=== PATIENT | male | born 1945 | race Caucasian/White ===

== ENCOUNTER → 2019-12-11 09:43 | Outpatient (BNVA) | payer MEDICARE, BC, SELFPAY | PROVIDERS: Family Provider Nurse Practitioner Family; PCP Nurse Practitioner Family; Visit Provider Nurse Practitioner Family | DX: E11.9 Type 2 diabetes mellitus without complications (principal) | CPT/HCPCS: 80053; 83036 ==

== ENCOUNTER → 2020-05-01 08:28 | Outpatient (BNVA) | payer MEDICARE, BC, SELFPAY | PROVIDERS: Family Provider Nurse Practitioner Family; PCP Nurse Practitioner Family; Visit Provider Nurse Practitioner Family | DX: E11.9 Type 2 diabetes mellitus without complications (principal); N18.3 Chronic kidney disease, stage 3 (moderate); E78.2 Mixed hyperlipidemia | CPT/HCPCS: 80053; 80061; 83036; 83721 ==

== ENCOUNTER → 2020-05-19 10:19 | Outpatient (BNVA) | payer MEDICARE, BC, SELFPAY | PROVIDERS: Family Provider Nurse Practitioner Family; PCP Nurse Practitioner Family; Visit Provider Nurse Practitioner Family | DX: N18.3 Chronic kidney disease, stage 3 (moderate) (principal); E03.9 Hypothyroidism, unspecified; E11.9 Type 2 diabetes mellitus without complications; E78.2 Mixed hyperlipidemia; I10 Essential (primary) hypertension; K21.9 Gastro-esophageal reflux disease without esophagitis | CPT/HCPCS: 80053; 84443 ==

== ENCOUNTER → 2020-08-25 09:56 | Outpatient (BNVA) | payer MEDICARE, BC, SELFPAY | PROVIDERS: Family Provider Nurse Practitioner Family; PCP Nurse Practitioner Family; Visit Provider Nurse Practitioner | DX: E11.9 Type 2 diabetes mellitus without complications (principal); E03.9 Hypothyroidism, unspecified; I10 Essential (primary) hypertension; E78.2 Mixed hyperlipidemia; Z79.899 Other long term (current) drug therapy | CPT/HCPCS: 80053; 80061; 81000; 82043; 82607; 83036; 83721; 84443; 85025 ==

== ENCOUNTER → 2020-11-03 09:20 | Outpatient (BNVA) | payer MEDICARE, BC, SELFPAY | PROVIDERS: Family Provider Nurse Practitioner Family; PCP Nurse Practitioner Family; Visit Provider Nurse Practitioner Family | DX: E11.65 Type 2 diabetes mellitus with hyperglycemia (principal); E78.2 Mixed hyperlipidemia; K21.9 Gastro-esophageal reflux disease without esophagitis; I25.5 Ischemic cardiomyopathy; I10 Essential (primary) hypertension; E03.9 Hypothyroidism, unspecified; N18.31 Chronic kidney disease, stage 3a | CPT/HCPCS: 80053; 80061; 83036; 83721; 84443; 85025 ==

== ENCOUNTER → 2021-02-03 15:09 | Outpatient (BNVA) | payer MEDICARE, BC, SELFPAY | PROVIDERS: Family Provider Nurse Practitioner Family; PCP Nurse Practitioner Family; Visit Provider Nurse Practitioner Family | DX: E03.9 Hypothyroidism, unspecified (principal); E11.65 Type 2 diabetes mellitus with hyperglycemia; E78.2 Mixed hyperlipidemia; I10 Essential (primary) hypertension; I25.5 Ischemic cardiomyopathy; K21.9 Gastro-esophageal reflux disease without esophagitis; N18.31 Chronic kidney disease, stage 3a | CPT/HCPCS: 80053; 80061; 83036; 84443; 85025 ==

== ENCOUNTER 2021-04-06 13:34 | Outpatient (CLI) | payer MEDICARE, BC, SELFPAY ==
--- NOTE | 2021-04-06 13:30 | USCV_ITS ---
Toi Pike Age: 76 Gender: M : 1945 Exam Date: 04/06/2021 14:01 Ordering Phys: Ronal Daley MD ([email or web address]) Technologist: Pham Negrete [place] [facility] [place]: OTHER, CHEST PAIN BP: / HR: 60 Rhythm: Sinus Technical Quality: Fair MEASUREMENTS (Male / Female) Normal Values 2D ECHO LV Diastolic Diameter PLAX 5.8 cm 4.2 - 5.9 / 3.9 - 5.3 cm LV Systolic Diameter PLAX 5.1 cm IVS Diastolic Thickness 1.0 cm 0.6 - 1.0 / 0.6 - 0.9 cm IVS Systolic Thickness 1.1 cm LVPW Diastolic Thickness 0.7 cm 0.6 - 1.0 / 0.6 - 0.9 cm LVPW Systolic Thickness 1.6 cm LVOT Diameter 2.2 cm LV Ejection Fraction 2D Teich 25.5 % LV Ejection Fraction MOD 2C 43.3 % LV Ejection Fraction 2C AL 44.4 % LA Diameter 3.4 cm LA Width 2.5 cm LA Height 5.1 cm RA Width 2.6 cm RA Height 4.6 cm Aorta at Sinotubular Diameter 3.7 cm M-MODE LV Diastolic Diameter MM 7.7 cm 4.2 - 5.9 / 3.9 - 5.3 cm LV Systolic Diameter MM 6.5 cm LV Ejection Fraction MM Teich 30.7 % IVS Diastolic Thickness MM 0.5 cm 0.6 - 1.0 / 0.6 - 0.9 cm IVS Systolic Thickness MM 0.5 cm LVPW Diastolic Thickness MM 0.8 cm 0.6 - 1.0 / 0.6 - 0.9 cm LVPW Systolic Thickness MM 1.2 cm Aortic Annulus Diameter 3.8 cm LA Ao Ratio MM 0.9 MV E Point Septal Separation 1.0 cm DOPPLER AV Peak Velocity 111.0 cm/s LVOT Peak Velocity 90.0 cm/s AV Area Cont Eq vti 3.5 cm squared AV Area Cont Eq pk 3.1 cm squared MV Peak Velocity 101.0 cm/s MV Area PHT 3.1 cm squared Mitral E to A Ratio 0.5 MV E' Velocity 26.0 cm/s Mitral E to MV E' Ratio 6.9 Mitral E to LV E' Lateral Ratio 5.8 Mitral E to LV E' Septal Ratio 8.7 TR Peak Velocity 64.0 cm/s TR Peak Gradient 1.6 mmHg Right Atrial Pressure 3.0 mmHg Pulmonary Artery Systolic Pressu 4.6 mmHg FINDINGS Left Ventricle Diffuse hypokinesia of the inferior wall, septum and the anteroseptal segments. LV ejection fraction of 43%.Grade I/IV diastolic dysfunction (abnormal relaxation filling pattern), normal to mildly elevated filling pressures. Right Ventricle Normal right ventricular size and systolic function. Right Atrium The right atrium is normal in size. Left Atrium The left atrium is normal in size. Mitral Valve Trace mitral valve regurgitation. Aortic Valve No gross abnormalities noted Tricuspid Valve No gross abnormalities noted Pulmonic Valve Pulmonic valve not well visualized. Pericardium Normal pericardium without effusion. Aorta Normal ascending aorta dimension. CONCLUSIONS Diffuse hypokinesia of the inferior wall, septum and the anteroseptal segments. LV ejection fraction of 43%.Grade I/IV diastolic dysfunction (abnormal relaxation filling pattern), normal to mildly elevated filling pressures. Trace mitral valve regurgitation. There is no pericardial effusion. There are no intracardiac masses. Compared to the study from 07/09/2015, there may not be a significant change Dr Ronal Daley MD FAC (Electronically Signed) Final Date: 06 Apr 2021 15:06 S
== END 2021-04-06 13:35 | disposition home or self-care (01) ==
LOC: RAD 13:40
PROVIDERS: PCP Nurse Practitioner Family; Visit Provider Internal Medicine Cardiovascular Disease
DX: R07.89 Other chest pain (principal); I25.5 Ischemic cardiomyopathy
CPT/HCPCS: 93306

== ENCOUNTER → 2021-05-05 10:52 | Outpatient (BNVA) | payer MEDICARE, BC, SELFPAY | PROVIDERS: PCP Nurse Practitioner Family; Visit Provider Nurse Practitioner Family | DX: I12.9 Hypertensive chronic kidney disease with stage 1 through stage 4 chronic kidney disease, or unspecified chronic kidney disease (principal); E03.9 Hypothyroidism, unspecified; E78.2 Mixed hyperlipidemia; E11.65 Type 2 diabetes mellitus with hyperglycemia; K21.9 Gastro-esophageal reflux disease without esophagitis; I25.5 Ischemic cardiomyopathy; N18.31 Chronic kidney disease, stage 3a; E11.22 Type 2 diabetes mellitus with diabetic chronic kidney disease | CPT/HCPCS: 80053; 80061; 83036; 83721; 84443; 85025 ==

== ENCOUNTER → 2021-07-28 10:00 | Outpatient (BNVA) | payer MEDICARE, BC, SELFPAY | PROVIDERS: PCP Nurse Practitioner Family; Visit Provider Nurse Practitioner Family | DX: E03.9 Hypothyroidism, unspecified (principal); E78.2 Mixed hyperlipidemia; E11.65 Type 2 diabetes mellitus with hyperglycemia; K21.9 Gastro-esophageal reflux disease without esophagitis; I25.5 Ischemic cardiomyopathy; I12.9 Hypertensive chronic kidney disease with stage 1 through stage 4 chronic kidney disease, or unspecified chronic kidney disease; N18.31 Chronic kidney disease, stage 3a | CPT/HCPCS: 80053; 80061; 83036; 84443; 85025 ==

== ENCOUNTER → 2021-08-20 10:57 | Outpatient (BNVA) | payer MEDICARE, BC, SELFPAY | PROVIDERS: PCP Nurse Practitioner Family; Visit Provider Nurse Practitioner Family | DX: M25.511 Pain in right shoulder (principal) | CPT/HCPCS: 73030 ==

== ENCOUNTER 2021-09-14 10:37 | Outpatient (CLI) | payer MEDICARE, BC, SELFPAY ==
--- NOTE | 2021-09-14 11:00 | MR_ITS ---
WS: [id number] MRI RIGHT SHOULDER NONCONTRAST TECHNIQUE: Sagittal T2, coronal T1, T2 and proton density imaging. Axial gradient PDE imaging. CLINICAL INFORMATION: M25.511 - Pain in right shoulder COMPARISON: MRI 2 017 FINDINGS: Moderate degenerative arthritis AC joint with mild downsloping acromion. Slight subacromial spurring. Slight impingement on the distal supraspinatus with tendinopathy. Small intrasubstance tear distally with undersurface tear at the supraspinatus insertion. Tendinopathy appears progressed since 2017. Normal infraspinatus. Normal teres minor. Normal subscapularis tendon distally. Normal biceps tendon in the bicipital groove. Small subcoracoid effusion. Mild degenerative fraying of the glenoid labrum. Inferior para labral cysts previously described have nearly resolved today. Moderate degenerative na rrowing at the glenohumeral joint. MR/MR shoulder RT wo con* [id number] IMPRESSION: 1. Moderate degenerative degenerative arthritis AC joint with mild edema and m ild downsloping acromion. Impingement on the distal supraspinatus. 2. Small intrasubstance tear in the distal supraspinatus with progressed adeno yessenia. Tiny undersurface insertional tear. 3. Rotator cuff is otherwise normal in appearance. No full-thickness rotator c uff tears. 4. Normal biceps tendon in the bicipital groove. Normal intra-articular biceps tendon. 5. Degenerative fraying of the glenoid labrum. 6. Small subcoracoid effusion.
== END 2021-09-14 10:38 | disposition home or self-care (01) ==
LOC: RADSHAW 10:43
PROVIDERS: PCP Nurse Practitioner Family; Visit Provider Nurse Practitioner Family
DX: M25.411 Effusion, right shoulder (principal); M19.011 Primary osteoarthritis, right shoulder; M75.101 Unspecified rotator cuff tear or rupture of right shoulder, not specified as traumatic; R60.0 Localized edema; G89.29 Other chronic pain
CPT/HCPCS: 73221

== ENCOUNTER → 2021-09-16 12:10 | Outpatient (BNVA) | payer MEDICARE, BC, SELFPAY | PROVIDERS: PCP Nurse Practitioner Family; Visit Provider Internal Medicine Cardiovascular Disease | DX: I25.5 Ischemic cardiomyopathy (principal); I50.33 Acute on chronic diastolic (congestive) heart failure; R07.89 Other chest pain; R06.02 Shortness of breath; I13.0 Hypertensive heart and chronic kidney disease with heart failure and stage 1 through stage 4 chronic kidney disease, or unspecified chronic kidney disease; I50.20 Unspecified systolic (congestive) heart failure; N18.31 Chronic kidney disease, stage 3a; I25.3 Aneurysm of heart; E78.2 Mixed hyperlipidemia | CPT/HCPCS: 80048; 83880 ==

== ENCOUNTER → 2021-10-26 11:03 | Outpatient (BNVA) | payer MEDICARE, BC, SELFPAY | PROVIDERS: PCP Nurse Practitioner Family; Visit Provider Nurse Practitioner Family | DX: E11.65 Type 2 diabetes mellitus with hyperglycemia (principal); E78.2 Mixed hyperlipidemia; E03.9 Hypothyroidism, unspecified; K21.9 Gastro-esophageal reflux disease without esophagitis; I25.5 Ischemic cardiomyopathy; I12.9 Hypertensive chronic kidney disease with stage 1 through stage 4 chronic kidney disease, or unspecified chronic kidney disease; E11.22 Type 2 diabetes mellitus with diabetic chronic kidney disease; N18.31 Chronic kidney disease, stage 3a | CPT/HCPCS: 80053; 80061; 83036; 83721; 84443; 85025 ==

== ENCOUNTER → 2022-01-29 11:42 | Outpatient (BNVA) | payer MEDICARE, BC, SELFPAY | PROVIDERS: PCP Nurse Practitioner Family; Visit Provider Nurse Practitioner Family | DX: E11.65 Type 2 diabetes mellitus with hyperglycemia (principal); E03.9 Hypothyroidism, unspecified | CPT/HCPCS: 80053; 80061; 83036; 83721; 84443; 85025 ==

== ENCOUNTER → 2022-04-22 11:16 | Outpatient (BNVA) | payer MEDICARE, SELFPAY | PROVIDERS: PCP Nurse Practitioner Family; Visit Provider Nurse Practitioner Family | DX: E11.65 Type 2 diabetes mellitus with hyperglycemia (principal); I10 Essential (primary) hypertension; E78.2 Mixed hyperlipidemia; E03.9 Hypothyroidism, unspecified; N18.31 Chronic kidney disease, stage 3a; K21.9 Gastro-esophageal reflux disease without esophagitis; I25.5 Ischemic cardiomyopathy | CPT/HCPCS: 80053; 80061; 83036; 83721; 84443; 85025 ==

== ENCOUNTER → 2022-05-13 10:42 | Outpatient (BNVA) | payer MEDICARE, SELFPAY | PROVIDERS: PCP Nurse Practitioner Family; Visit Provider Internal Medicine Cardiovascular Disease | DX: I25.5 Ischemic cardiomyopathy (principal); I12.9 Hypertensive chronic kidney disease with stage 1 through stage 4 chronic kidney disease, or unspecified chronic kidney disease; E11.22 Type 2 diabetes mellitus with diabetic chronic kidney disease; N18.31 Chronic kidney disease, stage 3a; Z79.84 Long term (current) use of oral hypoglycemic drugs; E11.65 Type 2 diabetes mellitus with hyperglycemia; I25.3 Aneurysm of heart; E78.2 Mixed hyperlipidemia | CPT/HCPCS: 99214 ==

== ENCOUNTER → 2022-07-23 11:07 | Outpatient (BNVA) | payer MEDICARE, SELFPAY | PROVIDERS: PCP Nurse Practitioner Family; Visit Provider Nurse Practitioner Family | DX: E11.65 Type 2 diabetes mellitus with hyperglycemia (principal); I10 Essential (primary) hypertension | CPT/HCPCS: 80053; 80061; 83036; 84443; 85025 ==

== ENCOUNTER → 2022-10-15 11:15 | Outpatient (BNVA) | payer MEDICARE, SELFPAY | PROVIDERS: PCP Nurse Practitioner Family; Visit Provider Nurse Practitioner Family | DX: E11.65 Type 2 diabetes mellitus with hyperglycemia (principal); E03.9 Hypothyroidism, unspecified; E78.2 Mixed hyperlipidemia; K21.9 Gastro-esophageal reflux disease without esophagitis | CPT/HCPCS: 80053; 80061; 83036; 84443; 85025 ==

== ENCOUNTER → 2023-01-03 10:37 | Outpatient (BNVA) | payer MEDICARE, SELFPAY | PROVIDERS: PCP Nurse Practitioner Family; Visit Provider Nurse Practitioner Family | DX: E11.65 Type 2 diabetes mellitus with hyperglycemia (principal) | CPT/HCPCS: 80053; 80061; 83036; 83721; 84443; 85025 ==

== ENCOUNTER → 2023-02-15 13:53 | Outpatient (BNVA) | payer MEDICARE, SELFPAY | PROVIDERS: PCP Nurse Practitioner Family; Visit Provider Nurse Practitioner Family | DX: I25.5 Ischemic cardiomyopathy (principal); I12.9 Hypertensive chronic kidney disease with stage 1 through stage 4 chronic kidney disease, or unspecified chronic kidney disease; E11.22 Type 2 diabetes mellitus with diabetic chronic kidney disease; E11.65 Type 2 diabetes mellitus with hyperglycemia; N18.30 Chronic kidney disease, stage 3 unspecified; Z79.84 Long term (current) use of oral hypoglycemic drugs | CPT/HCPCS: 99214 ==

== ENCOUNTER → 2023-03-28 10:35 | Outpatient (BNVA) | payer MEDICARE, SELFPAY | PROVIDERS: PCP Nurse Practitioner Family; Visit Provider Nurse Practitioner Family | DX: E11.65 Type 2 diabetes mellitus with hyperglycemia (principal) | CPT/HCPCS: 80053; 80061; 83036; 84443; 85025 ==

== ENCOUNTER 2023-06-20 15:59 | Emergency (ER) | payer MEDICARE, SELFPAY ==
[2023-06-20 16:44] VITALS: BP 164/92; PULSE 78; RESP 14; TEMP 36.3; O2SAT 94; BMI 31.4
--- NOTE | 2023-06-20 17:38 | USR_ITS ---
PROCEDURE INFORMATION: Exam: US Duplex Right Lower Extremity Arteries Or Arterial Bypass Grafts Exam date and time: 06/20/2023 6:03 PM Age: 78 years old Clinical indication: Other: Chigger bites to anterior aspect of right foot x 2 days. Now with loss of sensation and toes blue. ; Additional info: Discoloration of foot, RT distal foot and toes dusky, cold. New onset TECHNIQUE: Imaging protocol: Right Real-time duplex scan of the arteries or arterial bypass grafts of the right lower extremity with 2-D mata scale, color Doppler flow and spectral waveform analysis. Images documented and saved. COMPARISON: No relevant prior studies available. FINDINGS: Right common femoral artery: No occlusion or significant stenosis. Normal waveform. No pseudoaneurysm in the inguinal region. Right superficial femoral artery: No occlusion or significant stenosis. Normal waveform. Right popliteal artery: No occlusion or significant stenosis. Normal waveform. Right calf/foot arteries: No occlusion or significant stenosis in the visualized arteries. Normal waveforms. Dorsalis pedis artery is patent. Soft tissues: No hematoma or collection. RACHEL of 1.27 on the right and 1.20 on the left. US/[place] [id number] IMPRESSION: 1. No stenosis or occlusion. 2. Normal RACHEL.
--- NOTE | 2023-06-20 17:41 | W.ED.EXTPRO ---
HPI - Extremity Problem General: Chief complaint: Extremity Injury, Lower Stated complaint: Right Foot injury, Swelling and turning blue Time Seen by Provider: 06/20/23 17:12 Source: patient Mode of arrival: ambulatory Limitations: no limitations History of Present Illness: Patient presents to the emergency department today after being requested to have follow-up from his primary care doctor. Patient was originally in the primary care office where there was concerns regarding discoloration and pain to the right foot. Patient states that for several days he has had discomfort to the dorsum of his right foot. He states he had what looked like insect bites or possibly chiggers on the top of his foot. He states the last 2 nights he has been woken from sleep with stinging pain in this area. Patient denies stinging pain of the leg. He is also had some swelling and discoloration to the feet. Patient does deal with diabetic neuropathy. He denies any fevers. No chest pain, no shortness of breath, no recent cough. Patient is on clopidogrel daily. Review of Systems General: Reports: 10 or more systems reviewed and unremarkable except in HPI and below PFSH ED PFSH: Medical History Benign essential hypertension Chronic kidney disease, stage 3 Diabetes mellitus with hyperglycemia Enrolled in chronic care management GERD (gastroesophageal reflux disease) History of benign laryngeal tumor History of hepatitis B Hypothyroidism Ischemic cardiomyopathy Patient consistently refused to have any prophylactic ICD. He seems to understand implications. Left ventricular aneurysm Mixed hyperlipidemia Orthopnea Vertigo Surgical History History of angioplasty 2002 History of inguinal hernia repair Right 2013 Hx of arthroscopy of right knee Family History Mother CAD (coronary artery disease) Stroke Father CAD (coronary artery disease) Stroke Brother Cancer Grandmother Diabetes Other Hyperlipidemia Hypertension Denies family history of Clotting disorder Dementia Chronic kidney disease (CKD) Suicide Anesthesia complication Bleeding disorder Lung disease Social History Smoking and tobacco status: never smoked Second hand smoke exposure: No Smoking risk assessment/counseling performed?: No Alcohol intake: never Desire information about alcohol rehabilitation?: No Counseling given: No Substance/Drug Use: never Desire information about substance/drug rehabilitation?: No Counseling given: No Adopted: No Caregiver/support person: No Lives independently: Yes Household members: none Housing: House Marital status: Single Current occupational status: retired Do you think of yourself as: Straight/Heterosexual Current gender identity: Male Physical Exam Const: COMMON NORMALS: no acute distress, patient oriented x3 and alert HENMT: COMMON NORMALS: normocephalic, atraumatic and hearing grossly normal bilaterally HEAD & SCALP: normocephalic and atraumatic Eye: COMMON NORMALS: Equal, round and reactive pupils present, EOMs intact bilaterally and conjunctivae normal CONJUNCTIVA: Yes conjunctivae normal PUPIL: Yes Equal, round and reactive pupils present Neck/C-Spine: COMMON NORMALS: full ROM and no JVD Lymph: LYMPHATIC: no lymphadenopathy noted Resp: COMMON NORMALS: normal respiratory effort, No retractions and No use of accessory muscles Cardio: COMMON NORMALS: no JVD and regular rate RATE: regular rate Extremity: NARRATIVE EXTREMITY EXAM: Patient is able to fully flex and extend the toes on the right foot as well as the right ankle. He is independently ambulatory and weightbearing. Neuro: COMMON NORMALS: patient oriented x3 SENSORIUM/ORIENTATION: Yes alert Psych: COMMON NORMALS: mental status grossly normal, Normal thought process present, cooperative and normal affect THOUGHT PROCESS: Normal thought process present Skin: NARRATIVE SKIN EXAM: Patient has a cluster of small, red, pinpoint spots to the mid dorsum of the right foot. No other signs of rash or lesions up the foot or lower extremity. Patient does have some mild edema present to the foot as well as some darkening/duskiness of the distal forefoot and toes. Toenails are all thickened, brittle, and yellow. Course Vital Signs: Vital signs: Vital Signs Temperature 97.4 F L 06/20/23 16:44 Pulse Rate 78 06/20/23 16:44 Respiratory Rate 14 06/20/23 16:44 Blood Pressure 164/92 06/20/23 16:44 Pulse Oximetry 94 06/20/23 16:44 Oxygen Delivery Me thod Room Air 06/20/23 16:44 MDM - Extremity (Nontraumatic) Medical Decision Making Patient physical examination was initially concerning for shingles rash however, he has no other areas of rash which have developed in no other areas described as burning or tingling sensation noted. I agree patient has edema of the right foot and some darkening of the skin to the distal forefoot and toes. However, skin is still blanchable. We did an arterial ultrasound of the right lower extremity which showed no signs of any claudication or decreased blood flow into the lower extremity and foot. Patient's lab work is also unremarkable at this time. We will treat for potential cellulitis given the swelling is on the same foot as these bites . However, patient needs to be seen and evaluated by his primary care doctor within the next 24 to 48 hours for continued monitoring and evaluation for swelling of his right foot. Patient may be having vascular spasming, nighttime pain may be due to a restless leg syndrome or, could be due to worsening diabetic neuropathy. Patient verbalized understanding and agreement to treatment plan. Differential Diagnosis Likely herpes zoster, gout, cellulitis, superficial thrombophlebitis and lower extremity edema Lab Data 06/20/23 18:45 06/20/23 18:45 Radiology Impressions Duplex Scan Lower Extremity Artery 06/20/23 17:38 IMPRESSION: 1. No stenosis or occlusion. 2. Normal RACHEL. Laboratory Results WBC 9.7 10^3/uL (4.0-10.0) 06/20/23 18:45 RBC 5.09 10^6/uL (4.1-5.3) 06/20/23 18:45 Hgb 15.8 g/dL (11.7-16.6) 06/20/23 18:45 Hct 47.9 % (42.0-52.0) 06/20/23 18:45 MCV 94.1 fl (80-94) H 06/20/23 18:45 MCH 31.0 pg (28.0-34.0) 06/20/23 18:45 MCHC 33.0 g/dL (30.0-36.0) 06/20/23 18:45 RDW 14.0 % (12.1-15.1) 06/20/23 18:45 Plt Count 149 10^3/cmm (130-400) 06/20/23 18:45 MPV 10.9 fL (7.4-10.4) H 06/20/23 18:45 Neut % (Auto) 45.2 % 06/20/23 18:45 Lymph % (Auto) 27.8 % 06/20/23 18:45 [place] % (Auto) 9.1 % 06/20/23 18:45 Eos % (Auto) 16.1 % 06/20/23 18:45 Baso % (Auto) 1.4 % 06/20/23 18:45 Neut # (Auto) 4.39 10^3/uL (1.8-7.7) 06/20/23 18:45 Lymph # (Auto) 2.7 10^3/uL (0.8-4.8) 06/20/23 18:45 [place] # (Auto) 0.9 10^3/uL (0.2-0.9) 06/20/23 18:45 Eos # (Auto) 1.6 10^3/uL (0.0-0.8) H 06/20/23 18:45 Baso # (Auto) 0.1 10^3/uL (0.0-0.1) 06/20/23 18:45 Nucleated RBC % (auto) 0 % 06/20/23 18:45 Nucleated RBCs # 0.0 /100WBC 06/20/23 18:45 ESR < 1 mm/hr (0-10) 06/20/23 18:45 PT 13.30 SECONDS (12.1-14.9) 06/20/23 18:45 INR 0.98 (0.8-1.2) 06/20/23 18:45 APTT 26.2 SECONDS (23.9-36.7) 06/20/23 18:45 Sodium 136 mmol/L (136-145) 06/20/23 18:45 Potassium 3.9 mmol/L (3.5-5.1) 06/20/23 18:45 Chloride 98 mmol/L (98-107) 06/20/23 18:45 Carbon Dioxide 26 mmol/L (22-29) 06/20/23 18:45 Anion Gap 15.9 (5-19) 06/20/23 18:45 BUN 20 mg/dL (8-23) 06/20/23 18:45 Creatinine 1.0 mg/dL (0.7-1.2) 06/20/23 18:45 GFR Calculation Not Reportable 06/20/23 18:45 Glucose 110 mg/dL (65-115) 06/20/23 18:45 Calculated Osmolality 285 mOsm/kg (285-295) 06/20/23 18:45 Calcium 9.4 mg/dL (8.5-10.5) 06/20/23 18:45 Total Bilirubin 0.6 mg/dL (0.15-1.2) 06/20/23 18:45 AST 38 U/L (0-40) 06/20/23 18:45 ALT 42 U/L (0-41) H 06/20/23 18:45 Alkaline Phosphatase 44 U/L (40-130) 06/20/23 18:45 C-Reactive Protein 3.0 mg/L (0.0-4.9) 06/20/23 18:45 Total Protein 6.8 g/dL (6.6-8.7) 06/20/23 18:45 Albumin 4.5 g/dL (3.5-5.2) 06/20/23 18:45 Globulin 2.3 g/dL (1.3-4.6) 06/20/23 18:45 Urine Color Yellow (Yellow) 06/20/23 18:57 Urine Appearance Clear (CLEAR) 06/20/23 18:57 Urine pH 5 (5-7) 06/20/23 18:57 Ur Specific [place] 1.025 (1.005-1.030) 06/20/23 18:57 Urine Protein Neg (Negative) 06/20/23 18:57 Urine Glucose (UA) Norm (Normal) 06/20/23 18:57 Urine Ketones Negative (Negative) 06/20/23 18:57 Urine Blood Neg (Negative) 06/20/23 18:57 Urine Nitrate Negative (Negative) 06/20/23 18:57 Urine Bilirubin Neg (Negative) 06/20/23 18:57 Urine Urobilinogen Norm mg/dL (Negative) 06/20/23 18:57 Ur Leukocyte Esterase Negative (Negative) 06/20/23 18:57 Discharge Plan Discharge Patient Disposition: Home Clinical Impression: Cellulitis in diabetic foot Condition: Stable Prescriptions: New cephalexin 500 mg capsule 500 mg PO Q6H 7 Days Qty: 28 0RF No Action cinnamon bark [Cinnamon] 500 mg capsule 1,000 mg PO DAILY aspirin [Ecotrin] 325 mg tablet,delayed release (DR/EC) 325 mg PO DAILY multivitamin PO omega 3 1 tab PO DAILY Rx Instructions: 1000 unit capsule 2 oral daily zinc 50 mg tablet 50 mg PO DAILY niacin 500 mg tablet 1,500 mg PO DAILY red yeast rice 600 mg tablet 600 mg PO DAILY Rx Instructions: give with meal/snack nitroglycerin [Nitrostat] 0.4 mg tablet, sublingual 0.4 mg SUBLINGUAL Q5M PRN (Reason: chest pain) Qty: 30 2RF Rx Instructions: as directed levothyroxine 125 mcg tablet 125 mcg PO DAILY Qty: 90 3RF Rx Instructions: dose increase glipizide 10 mg tablet extended release 24hr 10 mg PO DAILY Qty: 90 3RF fenofibrate 160 mg tablet 160 mg PO DAILY 90 Days Qty: 90 3RF famotidine 20 mg tablet 20 mg PO BID 90 Days Qty: 180 3RF atorvastatin 10 mg tablet 10 mg PO .hs 90 Days Qty: 90 3RF (DME) Accu-Chek Guide test strips Strip See Rx Instructions .Route Qty: 100 3RF Rx Instructions: once daily carvedilol 12.5 mg tablet 12.5 mg PO BID Qty: 180 3RF lisinopril 10 mg tablet 10 mg PO DAILY Qty: 90 3RF clopidogrel 75 mg tablet 75 mg PO DAILY Qty: 90 3RF cholecalciferol (vitamin D3) 50 mcg (2,000 unit) capsule 100 mcg PO DAILY Jardiance 10 mg tablet 10 mg PO DAILY Qty: 90 1RF (DME) blood-glucose meter [Accu-Chek Guide Glucose Meter] Misc See Rx Instructions .Route Qty: 1 0RF Rx Instructions: As directed Discharge Orders: Discharge ED (Routine); Ordered 06/20/23 Ordered By: Kristie Spann Referrals: Isabelle Munoz FNP-C [Primary Care Provider] - Activity Restrictions/Additional Instructions: Imaging of your right lower extremity showed no issues with any blood flow on ultrasound. It is still possible that you are dealing with vascular spasming, symptoms of RLS, or acute worsening of neuropathy. Encourage you to speak with your primary care doctor regarding these other possibilities. I am providing you a short course of some antibiotic to help cover for an early onset skin infection on the top of your foot from what appears to be bug bites. Continue to monitor these for any worsening. Have a wound check/infection check with your primary care doctor at the same time you are discussing continued issues with right lower extremity discomfort. If you have any sudden swelling of the right lower extremity, inability to ambulate on the right lower extremity or notice worsening of discoloration to the right lower extremity you need to return to the ER. Coding Level of Care Code ED Strategic Account Director for Lex[facility] Marin
[2023-06-20 19:03] LABS: Add Urine Microscopic? NO; Charge for UA Resulting for Rev
[2023-06-20 19:05] LABS: Basophils # 0.1 10^3/uL (0.0-0.1); Basophils % 1.4 %; Eosinophils # 1.6 10^3/uL (0.0-0.8); Eosinophils % 16.1 %; Hematocrit 47.9 % (42.0-52.0); Hemoglobin 15.8 g/dL (11.7-16.6); Lymphocytes # 2.7 10^3/uL (0.8-4.8); Lymphocytes % 27.8 %; Mean Corpuscular Volume 94.1 fl (80-94); Mean Platelet Volume 10.9 fL (7.4-10.4); Monocytes # 0.9 10^3/uL (0.2-0.9); Monocytes % 9.1 %; Neutrophils # 4.39 10^3/uL (1.8-7.7); Neutrophils % 45.2 %; Nucleated Red Blood Cells % 0 %; Platelet Count 149 10^3/cmm (130-400); Red Blood Count 5.09 10^6/uL (4.1-5.3); White Blood Count 9.7 10^3/uL (4.0-10.0)
[2023-06-20 19:08] LABS: Bilirubin Urine Neg (Negative); Blood Urine Neg (Negative); Glucose Urine UA Norm (Normal); Ketones Urine Negative (Negative); Leukocyte Esterase Urine Negative (Negative); Nitrate Urine Negative (Negative); Protein Urine Neg (Negative); Specific Gravity, Urine 1.025 (1.005-1.030); Urine Appearance Clear (CLEAR); Urine Color Yellow (Yellow); Urobilinogen Urine Norm (Negative); pH Urine 5 (5-7)
[2023-06-20 19:08] LABS: Erythrocyte Sedimentation Rate < 1 mm/hr (0-10)
[2023-06-20 19:28] LABS: INR 0.98 (0.8-1.2)
[2023-06-20 19:29] LABS: Partial Thromboplastin Time 26.2 SECONDS (23.9-36.7)
[2023-06-20 19:34] LABS: Alanine Aminotransferase 42 U/L (0-41); Albumin Level 4.5 g/dL (3.5-5.2); Alkaline Phosphatase 44 U/L (40-130); Blood Urea Nitrogen 20 mg/dL (8-23); Calcium 9.4 mg/dL (8.5-10.5); Carbon Dioxide 26 mmol/L (22-29); Chloride 98 mmol/L (98-107); Creatinine Clr Calc Pharmacy 74.0583; Globulin 2.3 g/dL (1.3-4.6); Glucose 110 mg/dL (65-115); Osmolality Calculated 285 mOsm/kg (285-295); Sodium 136 mmol/L (136-145); Total Bilirubin 0.6 mg/dL (0.15-1.2); Total Protein 6.8 g/dL (6.6-8.7)
[2023-06-20 19:36] LABS: Anion Gap 15.9 (5-19); Aspartate Amino Transferase 38 U/L (0-40); Potassium 3.9 mmol/L (3.5-5.1)
[2023-06-20] MEDS: cephALEXin 500 mg Capsule PO (20:02)
== END 2023-06-20 20:04 | disposition home or self-care (01) ==
PROVIDERS: Emergency Provider Physician Assistant; PCP Nurse Practitioner Family
DX: L03.115 Cellulitis of right lower limb (principal); I12.9 Hypertensive chronic kidney disease with stage 1 through stage 4 chronic kidney disease, or unspecified chronic kidney disease; N18.30 Chronic kidney disease, stage 3 unspecified; E11.40 Type 2 diabetes mellitus with diabetic neuropathy, unspecified; E78.2 Mixed hyperlipidemia; E03.9 Hypothyroidism, unspecified; Z79.84 Long term (current) use of oral hypoglycemic drugs; Z79.82 Long term (current) use of aspirin
CPT/HCPCS: 36415; 80053; 81003; 85025; 85610; 85651; 85730; 86140; 93926; 99284

== ENCOUNTER → 2023-08-08 11:32 | Outpatient (BNVA) | payer MEDICARE, SELFPAY | PROVIDERS: PCP Nurse Practitioner Family; Visit Provider Nurse Practitioner Family | DX: E11.65 Type 2 diabetes mellitus with hyperglycemia (principal) | CPT/HCPCS: 80053; 80061; 83036; 84443; 85025 ==

== ENCOUNTER → 2023-09-08 09:34 | Outpatient (BNVA) | payer MEDICARE, SELFPAY | PROVIDERS: PCP Nurse Practitioner Family; Visit Provider Nurse Practitioner Family | DX: E11.65 Type 2 diabetes mellitus with hyperglycemia (principal); R79.89 Other specified abnormal findings of blood chemistry; D69.6 Thrombocytopenia, unspecified | CPT/HCPCS: 80053; 83036; 85025 ==

== ENCOUNTER → 2023-11-01 09:48 | Outpatient (BNVA) | payer MEDICARE, SELFPAY | PROVIDERS: PCP Nurse Practitioner Family; Visit Provider Nurse Practitioner Family | DX: R79.89 Other specified abnormal findings of blood chemistry (principal); D69.6 Thrombocytopenia, unspecified; E78.2 Mixed hyperlipidemia; I10 Essential (primary) hypertension; E11.65 Type 2 diabetes mellitus with hyperglycemia | CPT/HCPCS: 80053; 80061; 83036; 84443; 85025 ==

== ENCOUNTER → 2024-01-20 10:51 | Outpatient (BNVA) | payer MEDICARE, SELFPAY | PROVIDERS: PCP Nurse Practitioner Family; Visit Provider Nurse Practitioner Family | DX: I10 Essential (primary) hypertension (principal); E11.65 Type 2 diabetes mellitus with hyperglycemia; E78.2 Mixed hyperlipidemia; E03.9 Hypothyroidism, unspecified; K21.9 Gastro-esophageal reflux disease without esophagitis; I25.5 Ischemic cardiomyopathy; N18.31 Chronic kidney disease, stage 3a | CPT/HCPCS: 80053; 80061; 83036; 84443; 85025 ==

== ENCOUNTER → 2024-04-06 10:12 | Outpatient (BNVA) | payer MEDICARE, SELFPAY | PROVIDERS: PCP Nurse Practitioner Family; Visit Provider Nurse Practitioner Family | DX: E11.65 Type 2 diabetes mellitus with hyperglycemia (principal) | CPT/HCPCS: 80053; 83036; 84443; 85025 ==

== ENCOUNTER → 2024-04-24 09:59 | Outpatient (BNVA) | payer MEDICARE, SELFPAY | PROVIDERS: PCP Nurse Practitioner Family; Visit Provider Nurse Practitioner Family | DX: E78.2 Mixed hyperlipidemia (principal); R79.89 Other specified abnormal findings of blood chemistry; M25.551 Pain in right hip; W19.XXXA Unspecified fall, initial encounter; Y92.009 Unspecified place in unspecified non-institutional (private) residence as the place of occurrence of the external cause | CPT/HCPCS: 73502; 80053; 80061; 83721 ==

== ENCOUNTER 2024-05-09 08:37 | Outpatient (CLI) | payer MEDICARE, SELFPAY ==
--- NOTE | 2024-05-09 09:00 | US_ITS ---
WS: [id number] ULTRASOUND ABDOMEN CLINICAL INFORMATION: R10.30 - Lower abdominal pain, unspecified COMPARISON: None. FINDINGS: Liver Size: Enlarged Craniocaudal length: 18.9 cm. Echogenicity: Coarse Surface nodularity: None. Mass (size and location): None. Bile ducts Intrahepatic ducts: Normal. Common bile duct diameter: 0.3 cm. Gallbladder Normal. Gallstones: None. Gallbladder sludge: None. Gallbladder wall thickening: None. Pericholecystic fluid: None. Sonographic Castañeda sign: Absent. Pancreas Normal as visualized. Spleen Splenomegaly: Upper limits of normal Craniocaudal length: 12.1 cm. Right kidney: Normal. Hydronephrosis: None. Size: 12.0 cm x 5.0 cm x 4.9 cm Left kidney: Normal. Hydronephrosis: None. Size: 11.3 cm x 4.0 cm x 4.9 cm. Abdominal aorta and IVC Visualized portions are normal. Ascites: None. US/US abdomen complete* [id number] IMPRESSION: 1. Hepatomegaly with diffuse fatty infiltration of the liver. 2. Normal gallbladder. No cholelithiasis. 3. No hydronephrosis in either kidney. 4. Spleen size upper limits of normal. 5. Simple LEFT renal cyst measuring 1.8 x 1.8 cm
--- NOTE | 2024-05-09 10:30 | US_ITS ---
WS: [id number] US pelvic complete* [id number] HISTORY: R10.30 - Lower abdominal pain, unspecified COMPARISON: None available. Ultrasound directed to the RIGHT lower quadrant at the area of pain and discomfort. There is a large amount of bowel gas with shadowing. No soft tissue abnormality. No fluid or inflammatory process iden tified. US/US pelvic complete* [id number] IMPRESSION: No ultrasound abnormality in the RIGHT lower quadrant. For further evaluation C T with IV and oral contrast may provide additional information if clinically th ought necessary.
== END 2024-05-09 08:38 | disposition home or self-care (01) ==
LOC: RAD 08:39
PROVIDERS: PCP Nurse Practitioner Family; Visit Provider Nurse Practitioner Family
DX: R10.30 Lower abdominal pain, unspecified (principal); R10.31 Right lower quadrant pain; R10.32 Left lower quadrant pain; R16.0 Hepatomegaly, not elsewhere classified; N28.1 Cyst of kidney, acquired
CPT/HCPCS: 76700; 76856

== ENCOUNTER → 2024-05-24 11:24 | Outpatient (BNVA) | payer MEDICARE, SELFPAY | PROVIDERS: PCP Nurse Practitioner Family; Visit Provider Internal Medicine Cardiovascular Disease | DX: I25.5 Ischemic cardiomyopathy (principal); I25.3 Aneurysm of heart; E78.2 Mixed hyperlipidemia; E11.65 Type 2 diabetes mellitus with hyperglycemia; I12.9 Hypertensive chronic kidney disease with stage 1 through stage 4 chronic kidney disease, or unspecified chronic kidney disease; E11.22 Type 2 diabetes mellitus with diabetic chronic kidney disease; N18.30 Chronic kidney disease, stage 3 unspecified; Z79.84 Long term (current) use of oral hypoglycemic drugs | CPT/HCPCS: 99214 ==

== ENCOUNTER 2024-06-14 10:52 | Outpatient (CLI) | payer MEDICARE, SELFPAY ==
--- NOTE | 2024-06-14 11:15 | USCV_ITS ---
Toi Pike Age: 79 Gender: M : 1945 Exam Date: 06/14/2024 11:00 Ordering Phys: Ronal Daley MD ([email or web address]/[facility]) Technologist: BORIS Exam Location: [facility] [place] Indication: murmur hx of mi BP: / HR: 60 Rhythm: Sinus Technical Quality: Adequate MEASUREMENTS (Male / Female) Normal Values 2D ECHO LV Diastolic Diameter PLAX 5.6 cm 4.2 - 5.9 / 3.9 - 5.3 cm IVS Diastolic Thickness 1.2 cm 0.6 - 1.0 / 0.6 - 0.9 cm IVS Systolic Thickness 1.7 cm LVPW Diastolic Thickness 1.7 cm 0.6 - 1.0 / 0.6 - 0.9 cm LVPW Systolic Thickness 1.5 cm LVOT Diameter 2.0 cm LV Ejection Fraction 2D Teich 51.5 % LV Ejection Fraction MOD 4C 32.8 % LV Ejection Fraction MOD 2C 47.6 % LV Ejection Fraction 2C AL 48.0 % LA Diameter 2.9 cm LA Sys Volume AL 47.0 cm cubed LA Sys Volume Index AL 20.8 cm cubed/m squared Aorta at Sinotubular Diameter 3.5 cm IVC Diameter 2.4 cm M-MODE LA Ao Ratio MM 1.2 AV Cusp Separation MM 3.3 cm DOPPLER AV Peak Velocity 104.0 cm/s LVOT Peak Velocity 84.0 cm/s AV Area Cont Eq vti 2.6 cm squared AV Area Cont Eq pk 2.5 cm squared MV Area PHT 3.7 cm squared Mitral E to A Ratio 0.8 TV Peak Velocity 89.0 cm/s TR Peak Velocity 95.0 cm/s TR Peak Gradient 3.6 mmHg TR Mean Velocity 62.0 cm/s TR Mean Gradient 1.9 mmHg TR Velocity Time Integral 27.0 cm TV Peak E Velocity 40.0 cm/s PV Peak Velocity 81.0 cm/s FINDINGS Left Ventricle Concentrate left-ventricular hypertrophy with diffuse hypokinesia of the septum, anteroseptum and LV apex. The overall LV ejection fraction around 36% Right Ventricle Mild diffuse hypokinesia of the right ventricle Right Atrium Left Atrium Mitral Valve Aortic Valve Tricuspid Valve Pulmonic Valve Pericardium Aorta IVC CONCLUSIONS Multiple wall motion abnormalities with diminished ejection fraction of 36%. (Echo contrast - Optison was used to delineate the endocardium and to estimate the LV ejection fraction) Normal RV size with slightly diminished ejection fraction. Dr Ronal Daley MD FAC (Electronically Signed) Final Date: 25 June 2024 20:39 S
== END 2024-06-14 10:53 | disposition home or self-care (01) ==
LOC: RAD 10:52
PROVIDERS: PCP Nurse Practitioner Family; Visit Provider Internal Medicine Cardiovascular Disease
DX: I25.5 Ischemic cardiomyopathy (principal); I10 Essential (primary) hypertension
CPT/HCPCS: 93306; C8929

== ENCOUNTER → 2024-06-22 09:05 | Outpatient (BNVA) | payer MEDICARE, SELFPAY | PROVIDERS: PCP Nurse Practitioner Family; Visit Provider Nurse Practitioner Family | DX: I10 Essential (primary) hypertension (principal); E11.65 Type 2 diabetes mellitus with hyperglycemia; E03.9 Hypothyroidism, unspecified | CPT/HCPCS: 80053; 80061; 83036; 83721; 84443; 85025 ==

== ENCOUNTER → 2024-06-28 10:52 | Outpatient (BNVA) | payer MEDICARE, SELFPAY | PROVIDERS: PCP Nurse Practitioner Family; Visit Provider Nurse Practitioner Family | DX: M25.551 Pain in right hip (principal); M16.0 Bilateral primary osteoarthritis of hip | CPT/HCPCS: 73502 ==

== ENCOUNTER → 2024-09-06 11:50 | Outpatient (BNVA) | payer MEDICARE, SELFPAY | PROVIDERS: PCP Nurse Practitioner Family; Visit Provider Nurse Practitioner Family | DX: E11.65 Type 2 diabetes mellitus with hyperglycemia (principal) | CPT/HCPCS: 80053; 80061; 83036; 83721; 84443; 85025 ==

== ENCOUNTER → 2024-10-16 14:57 | Outpatient (BNVA) | payer MEDICARE, SELFPAY | PROVIDERS: PCP Nurse Practitioner Family; Visit Provider Nurse Practitioner Family | DX: R05.9 Cough, unspecified (principal) | CPT/HCPCS: 87426 ==

== ENCOUNTER → 2024-12-10 11:30 | Outpatient (BNVA) | payer MEDICARE, SELFPAY | PROVIDERS: PCP Nurse Practitioner Family; Visit Provider Internal Medicine Cardiovascular Disease | DX: I25.5 Ischemic cardiomyopathy (principal); I25.3 Aneurysm of heart; E78.2 Mixed hyperlipidemia; E11.65 Type 2 diabetes mellitus with hyperglycemia; Z87.891 Personal history of nicotine dependence; I12.9 Hypertensive chronic kidney disease with stage 1 through stage 4 chronic kidney disease, or unspecified chronic kidney disease; E11.22 Type 2 diabetes mellitus with diabetic chronic kidney disease; N18.30 Chronic kidney disease, stage 3 unspecified; Z79.84 Long term (current) use of oral hypoglycemic drugs | CPT/HCPCS: 99214 ==

== ENCOUNTER → 2024-12-27 13:57 | Outpatient (BNVA) | payer MEDICARE, SELFPAY | PROVIDERS: PCP Nurse Practitioner Family; Visit Provider Nurse Practitioner Family | DX: E11.65 Type 2 diabetes mellitus with hyperglycemia; I10 Essential (primary) hypertension | CPT/HCPCS: 80053; 80061; 83036; 83721; 84443; 85025 ==

== ENCOUNTER → 2025-03-25 09:54 | Outpatient (BNVA) | payer MEDICARE, SELFPAY | PROVIDERS: PCP Nurse Practitioner Family; Visit Provider Nurse Practitioner Family | DX: I10 Essential (primary) hypertension (principal); E11.65 Type 2 diabetes mellitus with hyperglycemia | CPT/HCPCS: 80053; 80061; 83036; 83721; 84443; 85025 ==

== ENCOUNTER → 2025-06-20 11:45 | Outpatient (BNVA) | payer MEDICARE, SELFPAY | PROVIDERS: PCP Nurse Practitioner Family; Visit Provider Nurse Practitioner Family | DX: I10 Essential (primary) hypertension (principal); N18.31 Chronic kidney disease, stage 3a; E11.65 Type 2 diabetes mellitus with hyperglycemia | CPT/HCPCS: 80053; 80061; 82306; 83036; 84443; 85025 ==

== ENCOUNTER → 2025-08-19 10:55 | Outpatient (BNVA) | payer MEDICARE, SELFPAY | PROVIDERS: PCP Nurse Practitioner Family; Visit Provider Internal Medicine Cardiovascular Disease | DX: I25.10 Atherosclerotic heart disease of native coronary artery without angina pectoris (principal); I25.5 Ischemic cardiomyopathy; I12.9 Hypertensive chronic kidney disease with stage 1 through stage 4 chronic kidney disease, or unspecified chronic kidney disease; N18.30 Chronic kidney disease, stage 3 unspecified; E11.22 Type 2 diabetes mellitus with diabetic chronic kidney disease; E11.65 Type 2 diabetes mellitus with hyperglycemia; Z79.84 Long term (current) use of oral hypoglycemic drugs; E78.2 Mixed hyperlipidemia; Z98.61 Coronary angioplasty status | CPT/HCPCS: 99214 ==

== ENCOUNTER → 2025-09-09 11:56 | Outpatient (BNVA) | payer MEDICARE, SELFPAY | PROVIDERS: PCP Nurse Practitioner Family; Visit Provider Nurse Practitioner Family | DX: E11.65 Type 2 diabetes mellitus with hyperglycemia (principal); I10 Essential (primary) hypertension | CPT/HCPCS: 80053; 80061; 83036; 84443; 85025 ==